=== PATIENT | female | born 1955 | race Caucasian/White ===

== ENCOUNTER 2017-04-08 03:24 | Emergency (ER) | payer SELFPAY ==
[~2017-04-08] VITALS: Ht 177.8 cm; Wt 60.0 kg
[~2017-04-08 03:24] MED LIST: AMLO5TAB4 PO; BENA20TA3 PO; BUDE6HFA INH
[2017-04-08] MEDS ORDERED: IPRATROPIUM BROMIDE (0.02%) 0.5MG/2.5ML NEB HHN STA (04:19)
[2017-04-08] MEDS ORDERED: METHYLPREDNISOLONE SOD SUCC 125 MG/2 ML VIAL IV STA (04:19)
[2017-04-08] MEDS ORDERED: ALBUTEROL (0.083%) 2.5MG/3ML NEB HHN STA (04:19)
[2017-04-08] MEDS ORDERED: AZITHROMYCIN 500 MG TABLET PO ONE (04:45)
[2017-04-08] MEDS ORDERED: PREDNISONE 20MG TABLET PO ONE (04:45)
[2017-04-08] MEDS ORDERED: ALBUTEROL (0.5%) 2.5MG/0.5ML NEB HHN ONE (04:51)
[2017-04-08 05:04] LABS: HEMATOCRIT. 38.3 % (36.0-48.0); HEMOGLOBIN. 12.6 g/dL (12.0-16.0); MEAN CORPUSCULAR HEMOGLOBIN 27.5 pg (28.0-32.0); MEAN CORPUSCULAR VOLUME 83.8 fL (81.0-99.0); PLATELET 299 x1000/uL (130-400); RED BLOOD CELL COUNT 4.58 mill/uL (4.2-5.4)
[2017-04-08 05:11] LABS: INR 0.9; PROTHROMBIN TIME 9.7 sec (9.4-11.6)
[2017-04-08 05:30] LABS: CARBON DIOXIDE 24 mEq/L (21-32); CHLORIDE 105 mEq/L (98-107); TROPONIN I < 0.02 ng/mL (0.00-0.04)
[2017-04-08 06:01] VITALS: BP 123/71
[2017-04-08 06:46] LABS: PLATELET ESTIMATE NORMAL
== END 2017-04-08 08:28 | disposition home or self-care (01) ==
LOC: ER 03:24
DX: J45.901 Unspecified asthma with (acute) exacerbation (principal); I10 Essential (primary) hypertension; F17.210 Nicotine dependence, cigarettes, uncomplicated; R00.0 Tachycardia, unspecified; Z71.6 Tobacco abuse counseling; Z90.49 Acquired absence of other specified parts of digestive tract
CPT/HCPCS: 36415; 71010; 80053; 83880; 84484; 85025; 85610; 93005; 94640; 99285; 99406; J7512; J7611

== ENCOUNTER 2017-08-24 13:59 | Emergency (ER) | payer SELFPAY ==
[~2017-08-24] VITALS: Ht 157.5 cm; Wt 60.0 kg
[2017-08-24 20:47] VITALS: BP 140/93
[2017-08-24 22:04] LABS: CLARITY URINE TURBID (CLEAR); COLOR URINE ORANGE (YELLOW); KETONES URINE TRACE (NEGATIVE); LEUKOCYTE ESTERASE URINE 3+ (NEGATIVE); NITRITE URINE POSITIVE (NEGATIVE); OCCULT BLOOD URINE 3+ (NEGATIVE); PROTEIN URINE 1+ (NEGATIVE); SPECIFIC GRAVITY URINE 1.019 (1.005-1.030)
[2017-08-24] MEDS ORDERED: NITROFURANTOIN 100MG M/M CAPSULE PO ONE (22:15)
== END 2017-08-24 22:35 | disposition home or self-care (01) ==
LOC: ER 15:47
DX: N39.0 Urinary tract infection, site not specified (principal); J45.909 Unspecified asthma, uncomplicated; I10 Essential (primary) hypertension; F17.210 Nicotine dependence, cigarettes, uncomplicated
CPT/HCPCS: 81001; 87077; 87086; 87186; 99284

== ENCOUNTER 2019-04-12 04:18 | Emergency (ER) | payer MEDICARE ==
[~2019-04-12] VITALS: Ht 157.5 cm; Wt 61.0 kg
[~2019-04-12 04:18] MED LIST changes: +ASPI-1158 PO; +BENA20TA10 PO; -BENA20TA3 PO
[2019-04-12] MEDS ORDERED: ALBUTEROL (0.083%) 2.5MG/3ML NEB HHN STA ×2 (05:12→07:30)
[2019-04-12] MEDS ORDERED: METHYLPREDNISOLONE SOD SUCC 125 MG/2 ML VIAL IV STA (05:12)
[2019-04-12] MEDS ORDERED: IPRATROPIUM BROMIDE (0.02%) 0.5MG/2.5ML NEB HHN STA ×2 (05:12→07:30)
[2019-04-12 05:30] LABS: BASOPHILS % 0.9 % (0.0-2.0); EOSINOPHILS % 6.4 % (0.0-5.0); HEMATOCRIT. 38.5 % (36.0-48.0); HEMOGLOBIN. 12.8 g/dL (12.0-16.0); LYMPHOCYTES % 33.5 % (20.0-50.0); MEAN CORPUSCULAR HEMOGLOBIN 28.1 pg (28.0-32.0); MEAN CORPUSCULAR VOLUME 84.5 fL (81.0-99.0); MEAN PLATELET VOLUME 7.8 fl (7.4-10.4); MONOCYTES % 7.8 % (2.0-8.0); NEUTROPHILS % 51.4 % (40.0-76.0); PLATELET 299 x1000/uL (130-400); RED BLOOD CELL COUNT 4.56 mill/uL (4.2-5.4); RED CELL DISTRIBUTION WIDTH 15.7 % (11.6-14.6)
[2019-04-12 05:38] LABS: CHLORIDE 110 mEq/L (98-107)
[2019-04-12] MEDS ORDERED: PREDNISONE 20MG TABLET PO ONE (06:45)
[2019-04-12 08:28] VITALS: BP 121/74
== END 2019-04-12 08:30 | disposition home or self-care (01) ==
LOC: ER 04:18
DX: J45.901 Unspecified asthma with (acute) exacerbation (principal); I10 Essential (primary) hypertension
CPT/HCPCS: 36415; 71045; 80053; 83880; 84484; 85025; 93005; 94640; 94644; 99285; J7512; J7611

== ENCOUNTER 2019-05-22 06:23 | Emergency (ER) | payer MEDICARE ==
[~2019-05-22] VITALS: Ht 157.5 cm; Wt 62.0 kg
[2019-05-22] MEDS ORDERED: ALBUTEROL (0.083%) 2.5MG/3ML NEB HHN STA (06:49)
[2019-05-22] MEDS ORDERED: PREDNISONE 20MG TABLET PO STA (06:49)
[2019-05-22 07:10] LABS: BASOPHILS % 0.9 % (0.0-2.0); HEMATOCRIT. 40.9 % (36.0-48.0); HEMOGLOBIN. 13.8 g/dL (12.0-16.0); LYMPHOCYTES % 23.5 % (20.0-50.0); MEAN CORPUSCULAR HEMOGLOBIN 28.4 pg (28.0-32.0); MEAN CORPUSCULAR VOLUME 84.5 fL (81.0-99.0); MEAN PLATELET VOLUME 7.7 fl (7.4-10.4); MONOCYTES % 7.6 % (2.0-8.0); PLATELET 329 x1000/uL (130-400); RED BLOOD CELL COUNT 4.84 mill/uL (4.2-5.4); RED CELL DISTRIBUTION WIDTH 15.8 % (11.6-14.6)
[2019-05-22 07:14] LABS: CHLORIDE 108 mEq/L (98-107)
[2019-05-22] MEDS ORDERED: IPRATROPIUM BROMIDE (0.02%) 0.5MG/2.5ML NEB HHN ONE (07:15)
[2019-05-22] MEDS ORDERED: ALBUTEROL (0.083%) 2.5MG/3ML NEB HHN ONE (08:45)
[2019-05-22 10:08] VITALS: BP 136/77
[2019-06-02] MEDS ORDERED: LORA10CA MT (12:47)
== END 2019-05-22 10:14 | disposition home or self-care (01) ==
LOC: ER 06:23
DX: J44.1 Chronic obstructive pulmonary disease with (acute) exacerbation (principal); I10 Essential (primary) hypertension; Z90.49 Acquired absence of other specified parts of digestive tract; Z90.89 Acquired absence of other organs; Z79.82 Long term (current) use of aspirin
CPT/HCPCS: 36415; 71045; 80053; 85025; 93005; 94640; 99284; J7512; J7611

== ENCOUNTER 2019-05-31 21:25 | Inpatient (IN) | payer MEDICARE ==
[~2019-05-31] VITALS: Ht 157.5 cm; Wt 61.2 kg
[2019-05-31] MEDS ORDERED: IPRATROPIUM BROMIDE (0.02%) 0.5MG/2.5ML NEB HHN STA (22:00)
[2019-05-31] MEDS ORDERED: ALBUTEROL (0.083%) 2.5MG/3ML NEB HHN STA (22:00)
[2019-05-31] MEDS ORDERED: METHYLPREDNISOLONE SOD SUCC 125 MG/2 ML VIAL IV STA (22:00)
[2019-05-31] MEDS ORDERED: PREDNISONE 20MG TABLET PO ONE (22:45)
[2019-05-31 22:52] LABS: CLARITY URINE CLEAR (CLEAR); COLOR URINE YELLOW (YELLOW); KETONES URINE NEGATIVE (NEGATIVE); LEUKOCYTE ESTERASE URINE NEGATIVE (NEGATIVE); NITRITE URINE NEGATIVE (NEGATIVE); OCCULT BLOOD URINE NEGATIVE (NEGATIVE); PROTEIN URINE NEGATIVE (NEGATIVE); SPECIFIC GRAVITY URINE 1.002 (1.005-1.030); UROBILINOGEN URINE 0.2 E.U./dL (0.2-1.0)
[2019-05-31] MEDS ORDERED: HYDROCODONE/ACETAMINOPHEN 5/325MG TABLET PO ONE (23:15)
[2019-05-31 23:29] LABS: BASOPHILS % 0.5 % (0.0-2.0); EOSINOPHILS % 2.8 % (0.0-5.0); HEMOGLOBIN. 13.2 g/dL (12.0-16.0); LYMPHOCYTES % 30.5 % (20.0-50.0); MEAN CORPUSCULAR HEMOGLOBIN 27.9 pg (28.0-32.0); MEAN CORPUSCULAR VOLUME 84.4 fL (81.0-99.0); MONOCYTES % 6.9 % (2.0-8.0); NEUTROPHILS % 59.3 % (40.0-76.0); PLATELET 380 x1000/uL (130-400); RED BLOOD CELL COUNT 4.73 mill/uL (4.2-5.4); RED CELL DISTRIBUTION WIDTH 15.7 % (11.6-14.6)
[2019-05-31 23:30] LABS: CHLORIDE 108 mEq/L (98-107)
[2019-06-01] VITALS (7 sets, daily range): BP systolic 102–128; BP diastolic 62–86
[2019-06-01] MEDS ORDERED: ALBUTEROL (0.5%) 2.5MG/0.5ML NEB HHN ONE
[2019-06-01] MEDS ORDERED: IPRATROPIUM/ALBUTEROL 0.5-3(2.5)MG/3ML NEB ONE (05:24)
[2019-06-01] MEDS ORDERED: HYDROCODONE/ACETAMINOPHEN 5/325MG TABLET PO PRN ×2 (05:30→05:45)
[2019-06-01] MEDS ORDERED: DIPHENHYDRAMINE 50MG/ML VIAL IV PRN ×2 (05:30→05:45)
[2019-06-01] MEDS ORDERED: IPRATROPIUM/ALBUTEROL 0.5-3(2.5)MG/3ML NEB HHN PRN ×2 (05:30→05:45)
[2019-06-01] MEDS ORDERED: ACETAMINOPHEN 650MG SUPP PR PRN (05:45)
[2019-06-01] MEDS ORDERED: DOCUSATE SODIUM 100MG CAPSULE PO PRN (05:45)
[2019-06-01] MEDS ORDERED: NA PHOS,M-B/NA PHOS,DI-BA ENEMA 118ML PR PRN (05:45)
[2019-06-01] MEDS ORDERED: CLONIDINE 0.1MG TABLET PO PRN (05:45)
[2019-06-01] MEDS ORDERED: MAGNESIUM/ALUMINUM HYDROXIDE/SIMETHICONE 30ML UDC PO PRN (05:45)
[2019-06-01] MEDS ORDERED: ACETAMINOPHEN 650MG/20.3ML UDC GT PRN (05:45)
[2019-06-01] MEDS ORDERED: ACETAMINOPHEN 325MG TABLET PO PRN (05:45)
[2019-06-01] MEDS ORDERED: HYDROCODONE/ACETAMINOPHEN 10/325MG TABLET PO PRN (05:45)
[2019-06-01] MEDS ORDERED: GUAIFENESIN 200MG/10ML SUGAR FREE UDC PO PRN (05:45)
[2019-06-01] MEDS: IPRATROPIUM/ALBUTEROL 0.5-3(2.5)MG/3ML NEB NEB SCH ×5 (05:53→20:17)
[2019-06-01] MEDS ORDERED: DEXTROSE 50% WATER 50ML SYRINGE IV PRN (06:00)
[2019-06-01] MEDS: ALPRAZOLAM 0.25 MG TABLET PO PRN ×2 (06:22→20:23)
[2019-06-01] MEDS: BLOOD SUGAR DIAGNOSTIC STRIP TEST SCH ×4 (06:29→20:23)
[2019-06-01] MEDS: SODIUM CHLORIDE 0.9% INJ 3ML FLUSH IVF SCH ×3 (06:41→20:24)
[2019-06-01] MEDS: INSULIN LISPRO 100 UNITS/ML SUBCUT SCH ×4 (06:48→20:23)
[2019-06-01] MEDS ORDERED: IPRATROPIUM/ALBUTEROL 0.5-3(2.5)MG/3ML NEB HHN SCH (08:00)
[2019-06-01] MEDS: PREDNISONE 20MG TABLET PO SCH (08:13)
[2019-06-01] MEDS: ENOXAPARIN 40MG/0.4ML SYR SUBCUT SCH (08:13)
[2019-06-01] MEDS: ASPIRIN 81MG EC TABLET PO SCH (08:13)
[2019-06-01] MEDS: AMLODIPINE 5MG TABLET PO SCH (08:14)
[2019-06-01] MEDS: BENAZEPRIL 10MG TABLET PO SCH (08:14)
[2019-06-01] MEDS: BUDESONIDE 0.5MG/2ML NEB HHN SCH ×2 (08:14→20:15)
[2019-06-01] MEDS ORDERED: BENAZEPRIL 10MG TABLET PO SCH (09:00)
[2019-06-01] MEDS ORDERED: [UNRECOGNIZED DRUG - OTHER] INH SCH (09:00)
[2019-06-01] MEDS ORDERED: PREDNISONE 20MG TABLET PO SCH (09:00)
[2019-06-01] MEDS: DIPHENHYDRAMINE 50MG/ML VIAL IV PRN ×3 (10:17→18:51)
[2019-06-01 12:02] LABS: *AMPHETAMINES SCREEN URINE NEGATIVE (NEGATIVE)
[2019-06-01 12:03] LABS: *BARBITURATES SCREEN URINE NEGATIVE (NEGATIVE); *BENZODIAZEPINES SCREEN URINE NEGATIVE (NEGATIVE); *COCAINE SCREEN URINE NEGATIVE (NEGATIVE); METHADONE URINE SCREEN NEGATIVE (NEGATIVE); OPIATES URINE SCREEN NEGATIVE (NEGATIVE); PHENCYCLIDINE URINE SCREEN NEGATIVE (NEGATIVE)
[2019-06-01 12:04] LABS: CANNABINOID URINE SCREEN NEGATIVE (NEGATIVE)
[2019-06-01 15:48] LABS: BASOPHILS % 0.5 % (0.0-2.0); EOSINOPHILS % 0.1 % (0.0-5.0); HEMATOCRIT. 36.2 % (36.0-48.0); HEMOGLOBIN. 12.1 g/dL (12.0-16.0); LYMPHOCYTES % 12.1 % (20.0-50.0); MEAN CORPUSCULAR HEMOGLOBIN 27.7 pg (28.0-32.0); MEAN PLATELET VOLUME 8.3 fl (7.4-10.4); MONOCYTES % 3.3 % (2.0-8.0); PLATELET 343 x1000/uL (130-400); RED BLOOD CELL COUNT 4.37 mill/uL (4.2-5.4); RED CELL DISTRIBUTION WIDTH 15.8 % (11.6-14.6)
[2019-06-01 15:50] LABS: CHLORIDE 107 mEq/L (98-107)
[2019-06-01] MEDS ORDERED: MONTELUKAST SODIUM 10MG TABLET PO SCH (17:00)
[2019-06-01] MEDS ORDERED: FAMOTIDINE 20MG TABLET PO SCH (21:00)
[2019-06-02] MEDS: IPRATROPIUM/ALBUTEROL 0.5-3(2.5)MG/3ML NEB NEB SCH ×4 (01:10→14:03)
[2019-06-02 04:00] VITALS: BP 121/71
[2019-06-02] MEDS: BLOOD SUGAR DIAGNOSTIC STRIP TEST SCH ×2 (05:45→12:10)
[2019-06-02] MEDS: SODIUM CHLORIDE 0.9% INJ 3ML FLUSH IVF SCH ×2 (05:59→14:55)
[2019-06-02] MEDS: INSULIN LISPRO 100 UNITS/ML SUBCUT SCH ×2 (06:09→12:40)
[2019-06-02 07:06] LABS: BASOPHILS % 1.1 % (0.0-2.0); EOSINOPHILS % 1.3 % (0.0-5.0); HEMATOCRIT. 36.4 % (36.0-48.0); LYMPHOCYTES % 35.8 % (20.0-50.0); MEAN CORPUSCULAR HEMOGLOBIN 27.9 pg (28.0-32.0); MEAN CORPUSCULAR VOLUME 84.5 fL (81.0-99.0); MEAN PLATELET VOLUME 8.1 fl (7.4-10.4); MONOCYTES % 7.5 % (2.0-8.0); NEUTROPHILS % 54.3 % (40.0-76.0); PLATELET 314 x1000/uL (130-400); RED BLOOD CELL COUNT 4.31 mill/uL (4.2-5.4); RED CELL DISTRIBUTION WIDTH 15.9 % (11.6-14.6)
[2019-06-02 07:07] LABS: CHLORIDE 111 mEq/L (98-107)
[2019-06-02 07:17] LABS: LDL CHOLESTEROL 159 mg/dL (5-100)
[2019-06-02 07:19] LABS: HDL CHOLESTEROL 42 mg/dL (40-59)
[2019-06-02 08:00] VITALS: BP 126/82
[2019-06-02] MEDS: AMLODIPINE 5MG TABLET PO SCH (08:20)
[2019-06-02] MEDS: PREDNISONE 20MG TABLET PO SCH (08:20)
[2019-06-02] MEDS: ASPIRIN 81MG EC TABLET PO SCH (08:20)
[2019-06-02] MEDS: BENAZEPRIL 10MG TABLET PO SCH (08:21)
[2019-06-02] MEDS: ENOXAPARIN 40MG/0.4ML SYR SUBCUT SCH (10:05)
[2019-06-02] MEDS: DIPHENHYDRAMINE 50MG/ML VIAL IV PRN (10:10)
[2019-06-02 12:00] VITALS: BP 103/66
[2019-06-02] MEDS ORDERED: LORA10CA MT (12:47)
[2019-06-02 14:17] VITALS: BP 103/66
[2019-06-02] MEDS ORDERED: LORATADINE 10MG TABLET PO SCH (21:00)
== END 2019-06-02 15:53 | disposition home or self-care (01) | DRG 189 ==
LOC: ER 21:25 → 8WST 06-01 00:25 → ENRESERV 06-01 01:11
PROVIDERS: ADMIT Family Medicine; ATTEND Family Medicine
DX: J96.00 Acute respiratory failure, unspecified whether with hypoxia or hypercapnia (principal); J44.1 Chronic obstructive pulmonary disease with (acute) exacerbation; J45.901 Unspecified asthma with (acute) exacerbation; E78.5 Hyperlipidemia, unspecified; I10 Essential (primary) hypertension; F41.9 Anxiety disorder, unspecified; R73.9 Hyperglycemia, unspecified; Z90.49 Acquired absence of other specified parts of digestive tract; Z87.891 Personal history of nicotine dependence
CPT/HCPCS: 36415; 71045; 80061; 80305; 81003; 82962; 83880; 84484; 93005; 94640; 94644; 99285; J1200; J1650; J1815; J2930; J7512; J7611; J7620; J7626

== ENCOUNTER 2019-06-23 16:52 | Emergency (ER) | payer MEDICARE ==
[~2019-06-23] VITALS: Ht 157.5 cm; Wt 62.0 kg
[~2019-06-23 16:52] MED LIST changes: +LORA10CA MT
[2019-06-23] MEDS ORDERED: PREDNISONE 20MG TABLET PO STA (17:09)
[2019-06-23] MEDS ORDERED: IPRATROPIUM BROMIDE (0.02%) 0.5MG/2.5ML NEB HHN STA (17:09)
[2019-06-23] MEDS ORDERED: ALBUTEROL (0.083%) 2.5MG/3ML NEB HHN STA (17:09)
[2019-06-23] MEDS: HYDROCODONE/ACETAMINOPHEN 5/325MG TABLET PO ONE (18:25)
[2019-06-23] MEDS: ALBUTEROL (0.083%) 2.5MG/3ML NEB HHN STA (19:28)
[2019-06-23 20:38] VITALS: BP 127/70
== END 2019-06-23 20:55 | disposition home or self-care (01) ==
LOC: ER 17:01
DX: J45.901 Unspecified asthma with (acute) exacerbation (principal); I10 Essential (primary) hypertension
CPT/HCPCS: 36415; 83880; 84484; 93005; 94640; 99284; J7512; J7611

== ENCOUNTER 2020-04-13 15:47 | Emergency (ER) | payer MEDICARE ==
[~2020-04-13] VITALS: Ht 157.5 cm; Wt 62.0 kg
[2020-04-13] MEDS ORDERED: ALBUTEROL (0.083%) 2.5MG/3ML NEB HHN STA (15:58)
[2020-04-13] MEDS ORDERED: MAGNESIUM 2 G PREMIX 50 ML IV STA (15:58)
[2020-04-13] MEDS ORDERED: METHYLPREDNISOLONE SOD SUCC 125 MG/2 ML VIAL IV STA (15:58)
[2020-04-13] MEDS ORDERED: IPRATROPIUM BROMIDE (0.02%) 0.5MG/2.5ML NEB HHN STA (15:58)
[2020-04-13] MEDS ORDERED: PREDNISONE 20MG TABLET PO ONE (16:45)
[2020-04-13 16:51] LABS: BASOPHILS % 1.3 % (0.0-2.0); EOSINOPHILS % 4.9 % (0.0-5.0); HEMATOCRIT. 40.4 % (36.0-48.0); HEMOGLOBIN. 13.4 g/dL (12.0-16.0); MEAN CORPUSCULAR HEMOGLOBIN 27.9 pg (28.0-32.0); MEAN CORPUSCULAR VOLUME 83.8 fL (81.0-99.0); MEAN PLATELET VOLUME 8.2 fl (7.4-10.4); NEUTROPHILS % 63.8 % (40.0-76.0); PLATELET 310 x1000/uL (130-400); RED BLOOD CELL COUNT 4.82 mill/uL (4.2-5.4)
[2020-04-13 16:59] LABS: CHLORIDE 108 mEq/L (98-107)
[2020-04-13 18:23] VITALS: BP 149/86
== END 2020-04-13 18:32 | disposition home or self-care (01) ==
LOC: ER 15:47
DX: J45.901 Unspecified asthma with (acute) exacerbation (principal); I10 Essential (primary) hypertension; Z79.82 Long term (current) use of aspirin; Z79.899 Other long term (current) drug therapy; Z88.8 Allergy status to other drugs, medicaments and biological substances; Z90.49 Acquired absence of other specified parts of digestive tract; Z90.89 Acquired absence of other organs
CPT/HCPCS: 36415; 71045; 80053; 83880; 84484; 85025; 93005; 94644; 99285; J7512

== ENCOUNTER 2020-06-29 11:40 | Inpatient (IN) | payer MEDICARE ==
[~2020-06-29] VITALS: Ht 157.5 cm; Wt 67.7 kg
[2020-06-29] MEDS ORDERED: ASPIRIN 81MG TABLET PO ONE (12:15)
[2020-06-29] MEDS ORDERED: HYDROXYZINE 25MG TABLET PO ONE (12:30)
[2020-06-29 13:13] LABS: BASOPHILS % 0.8 % (0.0-2.0); EOSINOPHILS % 3.3 % (0.0-5.0); HEMATOCRIT. 43.4 % (36.0-48.0); HEMOGLOBIN. 14.2 g/dL (12.0-16.0); LYMPHOCYTES % 20.9 % (20.0-50.0); MEAN CORPUSCULAR HEMOGLOBIN 27.8 pg (28.0-32.0); MEAN CORPUSCULAR VOLUME 84.8 fL (81.0-99.0); MEAN PLATELET VOLUME 8.1 fl (7.4-10.4); MONOCYTES % 5.4 % (2.0-8.0); NEUTROPHILS % 69.6 % (40.0-76.0); PLATELET 346 x1000/uL (130-400); RED BLOOD CELL COUNT 5.12 mill/uL (4.2-5.4); RED CELL DISTRIBUTION WIDTH 15.9 % (11.6-14.6)
[2020-06-29 13:20] LABS: CHLORIDE 109 mEq/L (98-107)
[2020-06-29] MEDS ORDERED: IOHEXOL-350 100 ML BOTTLE ONE (14:41)
[2020-06-29] MEDS ORDERED: ALPRAZOLAM 0.25 MG TABLET PO ONE (15:13)
[2020-06-29] MEDS ORDERED: GUAIFENESIN 200MG/10ML SUGAR FREE UDC PO PRN (17:00)
[2020-06-29] MEDS ORDERED: ONDANSETRON HCL 4MG/2ML INJ IV PRN (17:00)
[2020-06-29] MEDS ORDERED: MAGNESIUM/ALUMINUM HYDROXIDE/SIMETHICONE 30ML UDC PO PRN (17:00)
[2020-06-29] MEDS ORDERED: CLONIDINE 0.1MG TABLET PO PRN (17:00)
[2020-06-29] MEDS ORDERED: DOCUSATE SODIUM 100MG CAPSULE PO PRN (17:00)
[2020-06-29] MEDS ORDERED: MORPHINE SULFATE 2 MG/ML CPJ (NOT FOR IM USE) IV PRN (17:00)
[2020-06-29] MEDS ORDERED: ACETAMINOPHEN 325MG TABLET PO PRN (17:00)
[2020-06-29] MEDS ORDERED: ENOXAPARIN 40MG/0.4ML SYR SUBCUT SCH (18:00)
[2020-06-29 23:08] VITALS: BP 118/83
[2020-06-30] VITALS: BP 103/61
[2020-06-30] LABS: CREATINE KINASE 63 IU/L (26-192)
[2020-06-30] MEDS ORDERED: DIPHENHYDRAMINE 50MG CAPSULE PO PRN
[2020-06-30] MEDS ORDERED: ALBUTEROL (0.5%) 2.5MG/0.5ML NEB HHN PRN
[2020-06-30 00:01] LABS: CREATINE KINASE MB FRACTION < 1.0 ng/mL (0.5-3.6)
[2020-06-30] MEDS ORDERED: NON FORMULARY PATIENT HOME MED XX SCH (00:15)
[2020-06-30 00:19] VITALS: BP 118/83
[2020-06-30 04:00] VITALS: BP 102/65
[2020-06-30] MEDS: IPRATROPIUM/ALBUTEROL 0.5-3(2.5)MG/3ML NEB HHN PRN (06:24)
[2020-06-30 06:32] LABS: BASOPHILS % 1.8 % (0.0-2.0); EOSINOPHILS % 5.4 % (0.0-5.0); HEMATOCRIT. 36.8 % (36.0-48.0); HEMOGLOBIN. 12.3 g/dL (12.0-16.0); LYMPHOCYTES % 31.1 % (20.0-50.0); MEAN CORPUSCULAR HEMOGLOBIN 28.4 pg (28.0-32.0); MEAN CORPUSCULAR VOLUME 84.4 fL (81.0-99.0); MEAN PLATELET VOLUME 7.7 fl (7.4-10.4); MONOCYTES % 9.3 % (2.0-8.0); NEUTROPHILS % 52.4 % (40.0-76.0); PLATELET 326 x1000/uL (130-400); RED BLOOD CELL COUNT 4.35 mill/uL (4.2-5.4); RED CELL DISTRIBUTION WIDTH 15.8 % (11.6-14.6)
[2020-06-30 07:12] LABS: CHLORIDE 110 mEq/L (98-107)
[2020-06-30 07:20] LABS: LDL CHOLESTEROL 170 mg/dL (5-100)
[2020-06-30 07:22] LABS: CREATINE KINASE 58 IU/L (26-192); HDL CHOLESTEROL 41 mg/dL (40-59)
[2020-06-30 07:24] LABS: CREATINE KINASE MB FRACTION < 1.0 ng/mL (0.5-3.6)
[2020-06-30 08:00] VITALS: BP 111/71
[2020-06-30] MEDS: ASPIRIN 81MG EC TABLET PO SCH (09:13)
[2020-06-30] MEDS: AMLODIPINE 10MG TABLET PO SCH (09:14)
[2020-06-30] MEDS: LORATADINE 10MG TABLET PO SCH (11:00)
[2020-06-30] MEDS: IPRATROPIUM/ALBUTEROL 0.5-3(2.5)MG/3ML NEB NEB SCH ×2 (14:08→21:10)
[2020-06-30] MEDS ORDERED: ALPRAZOLAM 0.5 MG TABLET PO PRN (15:30)
[2020-06-30 16:00] VITALS: BP 117/75
[2020-06-30] MEDS: HYDROCODONE/ACETAMINOPHEN 5/325MG TABLET PO PRN (19:07)
[2020-06-30 20:00] VITALS: BP 101/55
[2020-06-30] MEDS: BUDESONIDE 0.5MG/2ML NEB HHN SCH (21:10)
[2020-06-30] MEDS: ATORVASTATIN CALCIUM 40MG TABLET PO SCH (21:14)
[2020-07-01] VITALS (21 sets, daily range): BP systolic 100–181; BP diastolic 54–99
[2020-07-01] MEDS: IPRATROPIUM/ALBUTEROL 0.5-3(2.5)MG/3ML NEB NEB SCH ×4 (01:51→20:58)
[2020-07-01] MEDS: IPRATROPIUM/ALBUTEROL 0.5-3(2.5)MG/3ML NEB HHN PRN (07:35)
[2020-07-01] MEDS ORDERED: FENTANYL CITRATE/PF 50MCG/ML 5ML VIAL ONE (07:57)
[2020-07-01] MEDS ORDERED: MIDAZOLAM HCL 5 MG/5 ML VIAL ONE (07:57)
[2020-07-01] MEDS ORDERED: IODIXANOL 320MG/ML 100 ML BOTTLE IV ONE (07:58)
[2020-07-01] MEDS ORDERED: LIDOCAINE HCL 1% 20ML VIAL (Pyxis) INJ ONE (07:58)
[2020-07-01] MEDS ORDERED: VERAPAMIL HCL 2.5 MG/1 ML 2ML VIAL IV ONE (07:58)
[2020-07-01] MEDS ORDERED: NITROGLYCERIN 50MCG/ML 10ML VIAL (CATH LAB) IV ONE (08:00)
[2020-07-01] MEDS ORDERED: HEPARIN SODIUM 1,000 UNIT/1ML VIAL IV ONE (08:00)
[2020-07-01] MEDS ORDERED: DIPHENHYDRAMINE 50MG/ML VIAL ONE (08:45)
[2020-07-01] MEDS: LORATADINE 10MG TABLET PO SCH ×2 (09:00→13:30)
[2020-07-01] MEDS: ASPIRIN 81MG EC TABLET PO SCH ×2 (09:00→13:30)
[2020-07-01] MEDS: AMLODIPINE 10MG TABLET PO SCH ×2 (09:00→13:30)
[2020-07-01] MEDS ORDERED: SODIUM CHLORIDE 0.45% 500 ML IV ONE ×2 (09:30→11:00)
[2020-07-01] MEDS: BUDESONIDE 0.5MG/2ML NEB HHN SCH (12:23)
[2020-07-01] MEDS: HYDROCODONE/ACETAMINOPHEN 5/325MG TABLET PO PRN (17:12)
[2020-07-01] MEDS: ATORVASTATIN CALCIUM 40MG TABLET PO SCH (20:43)
[2020-07-02] VITALS (7 sets, daily range): BP systolic 89–129; BP diastolic 57–77
[2020-07-02] MEDS: BUDESONIDE 0.5MG/2ML NEB HHN SCH ×2 (00:56→09:11)
[2020-07-02] MEDS: IPRATROPIUM/ALBUTEROL 0.5-3(2.5)MG/3ML NEB NEB SCH ×2 (02:34→09:11)
[2020-07-02] MEDS: HYDROCODONE/ACETAMINOPHEN 5/325MG TABLET PO PRN (03:38)
[2020-07-02 06:34] LABS: BASOPHILS % 0.3 % (0.0-2.0); HEMOGLOBIN. 12.4 g/dL (12.0-16.0); LYMPHOCYTES % 32.7 % (20.0-50.0); MEAN CORPUSCULAR HEMOGLOBIN 28.1 pg (28.0-32.0); MEAN CORPUSCULAR VOLUME 83.6 fL (81.0-99.0); MEAN PLATELET VOLUME 8.1 fl (7.4-10.4); MONOCYTES % 7.6 % (2.0-8.0); NEUTROPHILS % 54.4 % (40.0-76.0); PLATELET 329 x1000/uL (130-400); RED BLOOD CELL COUNT 4.42 mill/uL (4.2-5.4); RED CELL DISTRIBUTION WIDTH 15.6 % (11.6-14.6)
[2020-07-02 06:41] LABS: CHLORIDE 105 mEq/L (98-107)
[2020-07-02] MEDS: ASPIRIN 81MG EC TABLET PO SCH (08:48)
[2020-07-02] MEDS: AMLODIPINE 10MG TABLET PO SCH (08:48)
[2020-07-02] MEDS: LORATADINE 10MG TABLET PO SCH (08:48)
== END 2020-07-02 12:14 | disposition home or self-care (01) | DRG 287 ==
LOC: ER 11:40 → 5WST 16:08 → ENRESERV 22:10 → 3WST 07-01 10:05
PROVIDERS: ADMIT Hospitalist; ATTEND Hospitalist
PROC: 4A023N7 Measurement of Cardiac Sampling and Pressure, Left Heart, Percutaneous Approach (ICD-10-PCS; principal; 2020-07-01)
PROC: B211YZZ Fluoroscopy of Multiple Coronary Arteries using Other Contrast (ICD-10-PCS; 2020-07-01)
DX: I25.110 Atherosclerotic heart disease of native coronary artery with unstable angina pectoris (principal); E78.5 Hyperlipidemia, unspecified; J45.909 Unspecified asthma, uncomplicated; I10 Essential (primary) hypertension; J44.9 Chronic obstructive pulmonary disease, unspecified; F41.9 Anxiety disorder, unspecified; Z20.828 Contact with and (suspected) exposure to other viral communicable diseases; K76.0 Fatty (change of) liver, not elsewhere classified; Z87.891 Personal history of nicotine dependence; Z90.49 Acquired absence of other specified parts of digestive tract; Z79.82 Long term (current) use of aspirin; Z79.899 Other long term (current) drug therapy
CPT/HCPCS: 36415; 71045; 71275; 80048; 80053; 80061; 82550; 82553; 83880; 84484; 85025; 85347; 85379; 87426; 93005; 93306; 93458; 93571; 93970; 96372; 99285; C1769; C1887; C1893; J1200; J1644; J1650; J2250; J2405; J3010; J3490; J7626; Q0163; Q9967

== ENCOUNTER 2020-07-04 08:08 | Emergency (ER) | payer MEDICARE ==
[~2020-07-04] VITALS: Ht 157.5 cm; Wt 64.0 kg
[2020-07-04 10:05] VITALS: BP 126/78
== END 2020-07-04 10:00 | disposition home or self-care (01) ==
LOC: ER 08:08
DX: I80.9 Phlebitis and thrombophlebitis of unspecified site (principal); J44.9 Chronic obstructive pulmonary disease, unspecified; I10 Essential (primary) hypertension; Z90.49 Acquired absence of other specified parts of digestive tract; Z79.82 Long term (current) use of aspirin; Z79.899 Other long term (current) drug therapy
CPT/HCPCS: 93971; 99284

== ENCOUNTER 2020-08-14 15:23 | Emergency (ER) | payer MEDICARE ==
[~2020-08-14] VITALS: Ht 157.5 cm; Wt 65.0 kg
[2020-08-14 15:31] VITALS: BP 162/95
[2020-08-14] MEDS ORDERED: PREDNISONE 20MG TABLET PO STA (16:01)
[2020-08-14] MEDS ORDERED: ALBUTEROL 6.7GM HFA INHALER ORI ONE (16:15)
== END 2020-08-14 16:30 | disposition home or self-care (01) ==
LOC: ER 15:23
DX: J45.901 Unspecified asthma with (acute) exacerbation (principal); I10 Essential (primary) hypertension
CPT/HCPCS: 99283; J7512

== ENCOUNTER 2021-04-10 23:33 | Emergency (ER) | payer MEDICARE, MEDICAID, OTHER ==
[~2021-04-10] VITALS: Ht 157.5 cm; Wt 66.0 kg
[~2021-04-10 23:33] MED LIST changes: -ASPI-1158 PO; +ASPI-1406 PO
[2021-04-11] MEDS ORDERED: KETOROLAC 60MG/2ML VIAL IM STA (03:37)
[2021-04-11 04:14] LABS: BASOPHILS % 0.2 % (0.0-2.0); EOSINOPHILS % 1.3 % (0.0-5.0); HEMATOCRIT. 43.3 % (36.0-48.0); HEMOGLOBIN. 14.1 g/dL (12.0-16.0); LYMPHOCYTES % 32.6 % (20.0-50.0); MEAN CORPUSCULAR HEMOGLOBIN 27.8 pg (28.0-32.0); MEAN CORPUSCULAR VOLUME 85.2 fL (81.0-99.0); MEAN PLATELET VOLUME 8.4 fl (7.4-10.4); MONOCYTES % 6.4 % (2.0-8.0); NEUTROPHILS % 59.5 % (40.0-76.0); PLATELET 340 x1000/uL (130-400); RED BLOOD CELL COUNT 5.08 mill/uL (4.2-5.4); RED CELL DISTRIBUTION WIDTH 15.4 % (11.6-14.6)
[2021-04-11 04:21] LABS: CHLORIDE 108 mEq/L (98-107)
[2021-04-11 04:29] LABS: CLARITY URINE CLEAR (CLEAR); COLOR URINE YELLOW (YELLOW); KETONES URINE NEGATIVE (NEGATIVE); LEUKOCYTE ESTERASE URINE NEGATIVE (NEGATIVE); NITRITE URINE NEGATIVE (NEGATIVE); OCCULT BLOOD URINE NEGATIVE (NEGATIVE); PROTEIN URINE NEGATIVE (NEGATIVE); SPECIFIC GRAVITY URINE 1.014 (1.005-1.030); UROBILINOGEN URINE 0.2 E.U./dL (0.2-1.0)
[2021-04-11] MEDS ORDERED: HYDROCODONE/ACETAMINOPHEN 5/325MG TABLET PO ONE (05:00)
[2021-04-11] MEDS ORDERED: DOCU-138 MT (05:35)
[2021-04-11] MEDS ORDERED: METR500T MT (05:35)
[2021-04-11] MEDS ORDERED: CIPR-263 MT (05:35)
[2021-04-11] MEDS ORDERED: IBUP-2028 MT (05:35)
[2021-04-11 06:00] VITALS: BP 133/78
== END 2021-04-11 06:13 | disposition home or self-care (01) ==
LOC: ER 23:33
DX: K57.92 Diverticulitis of intestine, part unspecified, without perforation or abscess without bleeding (principal); I10 Essential (primary) hypertension; J45.909 Unspecified asthma, uncomplicated; J44.9 Chronic obstructive pulmonary disease, unspecified; Z79.82 Long term (current) use of aspirin; Z79.899 Other long term (current) drug therapy; Z90.49 Acquired absence of other specified parts of digestive tract
CPT/HCPCS: 36415; 71045; 74176; 80053; 81003; 83690; 85025; 93005; 96372; 99285; J1885

== ENCOUNTER 2022-01-18 19:33 | Emergency (ER) | payer MEDICAID, MEDICARE, OTHER ==
[~2022-01-18] VITALS: Ht 157.5 cm; Wt 64.0 kg
[~2022-01-18 19:33] MED LIST changes: +BENA-8 PO; -BENA20TA10 PO; +CIPR-263 MT; +DOCU-138 MT; +IBUP-2028 MT; +METR500T MT
[2022-01-18] MEDS ORDERED: MORPHINE SULFATE 4 MG/ML CPJ (NOT FOR IM USE) IV STA (22:06)
[2022-01-18] MEDS ORDERED: ONDANSETRON HCL 4MG/2ML INJ IV STA (22:06)
[2022-01-18] MEDS ORDERED: ENALAPRIL 2.5MG/2ML VIAL 2ML IV ONE (22:15)
[2022-01-18] MEDS ORDERED: ENALAPRIL 1.25MG/ML VIAL 1ML IV NR (22:15)
[2022-01-18 22:57] LABS: BASOPHILS % 0.4 % (0.0-2.0); EOSINOPHILS % 0.3 % (0.0-5.0); HEMATOCRIT. 41.7 % (36.0-48.0); HEMOGLOBIN. 13.8 g/dL (12.0-16.0); LYMPHOCYTES % 19.1 % (20.0-50.0); MEAN CORPUSCULAR HEMOGLOBIN 27.9 pg (28.0-32.0); MEAN CORPUSCULAR VOLUME 84.8 fL (81.0-99.0); MEAN PLATELET VOLUME 8.4 fl (7.4-10.4); NEUTROPHILS % 74.2 % (40.0-76.0); PLATELET 343 x1000/uL (130-400); RED BLOOD CELL COUNT 4.92 mill/uL (4.2-5.4); RED CELL DISTRIBUTION WIDTH 14.7 % (11.6-14.6)
[2022-01-18 23:00] LABS: CHLORIDE 102 mEq/L (98-107)
[2022-01-18] MEDS ORDERED: METOCLOPRAMIDE HCL 10MG/2ML VIAL IV ONE (23:30)
[2022-01-19] MEDS ORDERED: IBUP-2028 MT (01:27)
[2022-01-19] MEDS ORDERED: ONDA4TAB11 PO (01:27)
[2022-01-19 01:55] VITALS: BP 137/78
[2022-01-19] MEDS ORDERED: ONDANSETRON 4MG ODT PO ONE (02:00)
== END 2022-01-19 02:00 | disposition home or self-care (01) ==
LOC: ER 19:33
DX: I10 Essential (primary) hypertension (principal); R51.9 Headache, unspecified; J44.9 Chronic obstructive pulmonary disease, unspecified; Z88.8 Allergy status to other drugs, medicaments and biological substances; Z90.89 Acquired absence of other organs; Z90.49 Acquired absence of other specified parts of digestive tract
CPT/HCPCS: 36415; 70450; 80048; 85025; 96374; 96375; 99284; J2270; J2405; J2765; J3490